=== PATIENT | female | born 1940 | race Caucasian/White ===

== ENCOUNTER 2019-09-20 03:22 | Observation (INO) | payer MEDICARE, OTHER ==
[~2019-09-20] VITALS: Ht 165.1 cm; Wt 96.5 kg
[~2019-09-20 03:22] MED LIST: ACET325; ACET500 PO; ALBU90I; ALBU90I INH; ALBU90OI INH; AMLO5 PO; ASPI325; ATOR40TA; ATOR40TA PO; AZIT250 PO; CALPHO600; CENTRUM SILVER1 EAC2 PO; CEPH500 PO; CITA20 PO; COLE1 PO; Calcium + Vita1 EACH PO; Cleocin HCl300 MG PO; DIOVAN HCT; DIPASPER; DIPASPER PO; ESCI10; ESCI20; ESCI20 PO; ESTEST.62T; FAMO10; FIORICET; GABA300; GABA300 PO; GABA600; GLYB5; GLYB5 PO; Garlic Oil1000 MG PO; HYDACE5; HYDACE5 PO; HYDCHL12.5; HYDCHL12.5 PO; HYDCHL25; HYDPAM100; HYDPAM25; HYDROXYZINE PAMOATE; LANS30EC PO; LEVSOD100; LEVSOD150 PO; LEVSOD200; LEVSOD50 PO; LISI20 PO; LITH300C; LORA10ER; LORA10ER PO; LOVA40 PO; MELA3 PO; METF500; METF500 PO; METO50; MIRALAX17 GM PO; MULT50L PO; MULVITA; MULVITMINF; NITR100CA PO; OMEPRAZOLE20 MG PO; Oxycodone HCl5 M1; PIOG15; PIOG30 PO; PRED20 PO; PRIM50; PRIM50 PO; PROACE100; Percocet 5-3251 EACH PO; QUIN325; SALINE NASAL M126 ML NS; Senna-Docusate1 EACH PO; Symbicort 16010.2 GM IH; TEMA15; TEMA30; TOCO1000; TOCO400; VALS80; Vitamin B-121000 MCG PO; ZYRTEC10 M1 PO
[2019-09-20 04:41] LABS: BASOPHILS ABSOLUTE AUTO 0.04 K/mm3 (0.00-0.23); BASOPHILS PERCENT AUTO 1 % (0-2); EOSINOPHILS ABSOLUTE AUTO 0.11 K/mm3 (0.00-0.68); EOSINOPHILS PERCENT AUTO 1 % (0-6); Hemoglobin 13.1 g/dL (11.5-16.0); IMMATURE GRAN ABSOLUTE AUTO 0.03 K/mm3 (0.00-0.10); IMMATURE GRAN PERCENT AUTO 0 % (0-1); LYMPHOCYTES PERCENT AUTO 16 % (21-46); MONOCYTES ABSOLUTE AUTO 0.74 K/mm3 (0.16-1.47); MONOCYTES PERCENT AUTO 8 % (4-13); Mean Corpuscular HGB 30.7 pg (26.0-34.0); Mean Corpuscular HGB Conc 33.6 g/dL (31.5-36.5); Mean Corpuscular Volume 91 fL (80-100); Mean Platelet Volume 9.7 fL (9.1-12.4); NEUTROPHILS ABSOLUTE AUTO 6.51 K/mm3 (1.96-9.15); NEUTROPHILS PERCENT AUTO 74 % (41-73); Platelet Count 225 K/mm3 (150-400); RDW Coefficient Variation 12.2 % (11.7-14.2); RDW Standard Deviation 40.1 fL (35.1-46.3); Red Blood Cell Count 4.27 M/mm3 (3.80-5.20); White Blood Cell Count 8.83 K/mm3 (4.00-11.30)
[2019-09-20 05:03] LABS: Alanine Aminotransfer (ALT/SGP 22 U/L (12-78); Albumin, Blood 3.6 g/dL (3.4-5.0); Albumin/Globulin Ratio 1.2 (0.8-1.8); Alk Phos 96 U/L (50-136); Anion Gap 7 mmol/L (6-16); Aspartate Aminotrans (AST/SGOT 17 U/L (12-37); Bilirubin, Total 0.4 mg/dL (0.1-1.0); Blood Urea Nitrogen 17 mg/dL (8-24); Bun/Creatinine Ratio 18.6 (12.0-20.0); CO2, Blood 24 mmol/L (21-32); Calcium, Blood 9.6 mg/dL (8.5-10.1); Chloride, Blood 111 mmol/L (98-108); Creatinine, Blood 0.92 mg/dL (0.40-1.00); Globulin, Blood 3.1 g/dL (2.2-4.0); Glomerular Filtration Rate >60 (60-); Glucose, Blood 62 mg/dL (70-99); Sodium, Blood 142 mmol/L (136-145); Total Protein, Blood 6.7 g/dL (6.4-8.2); Troponin I <0.015 ng/mL (0.000-0.040)
--- NOTE | 2019-09-20 07:17 | NUR ---
ER ADMIT-CHANGE OF SHIFT PT CHANGE OF SHIFT ADMIT AND ARRIVED TO THE UNIT SHORTLY BEFORE 0700. PT SETTLED INTO THE ROOM. SHE IS RESTING IN BED WITHOUT S/S OF DISTRESS. WILL REPORT TO FERNANDO HILL.
[2019-09-20] MEDS ORDERED: BILBERRY80 MG PO (09:27)
[2019-09-20] MEDS ORDERED: DULO30 PO (09:31)
[2019-09-20] MEDS ORDERED: ESCI20 PO (09:31)
[2019-09-20] MEDS ORDERED: GLIP10ER PO (09:36)
[2019-09-20] MEDS ORDERED: Glucophage1000 MG PO (09:38)
[2019-09-20] MEDS ORDERED: HYDR1TAB94 PO (09:40)
[2019-09-20 14:56] LABS: Source, Urine Clean Catch
[2019-09-20 15:05] LABS: Bilirubin, Urine Neg (Neg); Blood, Urine 3+ (Neg); Glucose Qualitative, Urine Neg (Neg); Ketones, Urine Neg (Neg); Leukocyte Esterase, Urine 3+ (Neg); Nitrite, Urine Neg (Neg); Protein, Urine 2+ (Neg); Urobilinogen, Urine NORM (Normal)
[2019-09-20 15:16] LABS: Appearance, Urine Cloudy (Clear); Color, Urine Yellow (P-Yellow)
[2019-09-20 15:18] LABS: White Blood Cells, Urine TNTC /hpf (0-5)
[2019-09-20 15:19] LABS: Bacteria Many /hpf
[2019-09-20 15:20] LABS: Squamous Epithelial Cells Few /hpf (Few)
--- NOTE | 2019-09-20 16:17 | NUR ---
PT PLEASANT TODAY. DENIES PAIN. PT/OT WORKED WITH HER TODAY. IS WOBLY BUT STRONG ENOUGH TO WALK WITH FWW. VERY MINIMAL LEFT WEAKNESS. GRAND STEFFANIEICE IN TO VISIT. 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 STATES SHE DOES BASICALLY EVERYTHING FOR HER. ORDER FOR S/S HAS BEEN PLACED RE HOME SITUATION. NO OTHER CONCERNS AT THIS TIME. BED IN LOW POSITION, CALL LITE IN REACH, CALLS APPROP
--- NOTE | 2019-09-21 03:37 | NUR ---
SHIFT SUMMARY AOX4. LS CLEAR, DENIES SOB. NO C/O NAUSEA. PAIN 5/10 IN LOWER BACK. TYLENOL GIVEN @ 2015 AND PERCOCET GIVEN @ 0245. 1 ASSIST WITH WALKER AND GAIT BELT TO THE BATHROOM. PT UP FREQUENTLY THROUGHOUT THE NIGHT. USUALLY HAD ABOUT 200 OUTPUT. VERY SLIGHT L SIDE FACIAL DROOP, HX OF CVA. PUPILS ARE NON-REACTIVE, RECEIVED THIS INFO IN REPORT AND STILL ACCURATE. BED ALARM, PT CALLED APPROPRIATELY. TELE READS SR IN THE 70'S WITH BBB. BIPAP AND CONT PULSE OX OVERNIGHT. R WRIST HAS NS @ 75, 1.5L THEN SL, 2ND BAG RUNNING NOW. BLOOD GLUCOSE AC AND HS - 186. CT (-). BRAIN STIMULATOR FOR TREMORS. NOTE SAYING S/S WERE D/T HYPOGLYCEMIA NOT CVA. VSS ON RA. UNSURE OF DC PLAN AT THIS TIME.
[2019-09-21 05:34] LABS: Hematocrit 39.7 % (33.0-51.0); Hemoglobin 12.8 g/dL (11.5-16.0); Mean Corpuscular HGB 30.3 pg (26.0-34.0); Mean Corpuscular HGB Conc 32.2 g/dL (31.5-36.5); Mean Platelet Volume 9.6 fL (9.1-12.4); Platelet Count 214 K/mm3 (150-400); RDW Coefficient Variation 12.2 % (11.7-14.2); RDW Standard Deviation 42.1 fL (35.1-46.3); Red Blood Cell Count 4.23 M/mm3 (3.80-5.20); White Blood Cell Count 8.06 K/mm3 (4.00-11.30)
[2019-09-21 05:43] LABS: Mean Corpuscular Volume 94 fL (80-100)
[2019-09-21 06:15] LABS: Alanine Aminotransfer (ALT/SGP 21 U/L (12-78); Albumin, Blood 3.6 g/dL (3.4-5.0); Albumin/Globulin Ratio 1.1 (0.8-1.8); Alk Phos 92 U/L (50-136); Anion Gap 8 mmol/L (6-16); Aspartate Aminotrans (AST/SGOT 18 U/L (12-37); Bilirubin, Total 0.6 mg/dL (0.1-1.0); Blood Urea Nitrogen 19 mg/dL (8-24); Bun/Creatinine Ratio 20.9 (12.0-20.0); CO2, Blood 23 mmol/L (21-32); Calcium, Blood 9.4 mg/dL (8.5-10.1); Chloride, Blood 110 mmol/L (98-108); Creatinine, Blood 0.91 mg/dL (0.40-1.00); Globulin, Blood 3.2 g/dL (2.2-4.0); Glomerular Filtration Rate >60 (60-); Glucose, Blood 133 mg/dL (70-99); Potassium, Blood 4.5 mmol/L (3.5-5.5); Sodium, Blood 141 mmol/L (136-145); Total Protein, Blood 6.8 g/dL (6.4-8.2)
--- NOTE | 2019-09-21 19:29 | NUR ---
SHIFT SUMMARY. A&OX4, PLEASANT AND COOPERATIVE, AWARE OF LIMITATIONS AND CALLS APPRPRIATELY. ONE ASSIST WITH FWW AND GB. PT DENIES PAIN, SOB, N/V. NEURO CHECKS NEGATIVE. NO NEW CHANGES OR CONCERNS.
[2019-09-22 01:15] LABS: Adenovirus Not Detected (NOT DETECT); Bordetella pertussis Not Detected (NOT DETECT); Chlamydophila pneumoniae Not Detected (NOT DETECT); Coronavirus 229E Not Detected (NOT DETECT); Coronavirus HKU1 Not Detected (NOT DETECT); Coronavirus NL63 Not Detected (NOT DETECT); Coronavirus OC43 Not Detected (NOT DETECT); Human Metapneumovirus Not Detected (NOT DETECT); Human Rhinovirus/Enterovirus Not Detected (NOT DETECT); Influenza A Not Detected (NOT DETECT); Influenza A/2009-H1 Not Detected (NOT DETECT); Influenza A/H1 Not Detected (NOT DETECT); Influenza A/H3 Not Detected (NOT DETECT); Influenza B Not Detected (NOT DETECT); Mycoplasma pneumoniae Not Detected (NOT DETECT); Parainfluenza Virus 1 Not Detected (NOT DETECT); Parainfluenza Virus 2 Not Detected (NOT DETECT); Parainfluenza Virus 3 Not Detected (NOT DETECT); Parainfluenza Virus 4 Not Detected (NOT DETECT); Respiratory Syncytial Virus Not Detected (NOT DETECT)
--- NOTE | 2019-09-22 03:35 | NUR ---
DEPUTY GRAND JURY SUMMARY PT A/O X4 AT BEGINNING OF SHIFT. HOWEVER, WHEN PT WAKES UP IN THE MIDDLE OF NIGHT TO USE BATHROOM, PT THINKS SHE IS AT HOME BUT QUICKLY REMEMBERS SHE IS IN THE HOSPITAL. DENIES PAIN, DIZZINIESS, NAUSEA. USES CALL REESE APPROPRIATELY AND IS COOPERATIVE. NASAL SWAB WAS DONE AND SENT TO LAB. CPAP AND CONTINOUS PULSE OX ON WITH SATS IN HIGH 90'S. VSS, WILL CONTINUE TO MONITOR.
--- NOTE | 2019-09-22 18:12 | NUR ---
SHIFT SUMMARY NO ACUTE CHANGES. PATIENT DENIES PAIN, NAUSEA, ANS SHORTNESS OF BREATH. PATIENT UP ONE ASSIST W/ GAITBELT AND FWW. PATIENT UP IN CHAIR FOR MEALS. PATIENT CONTINUES TO HAVE MILD TREMORS. PATIENT STATES SHE NEEDS MORE ASSISTANCE AT HOME THAN HER NIECE IS PROVIDING. PATIENT STATES SHE IS SCHEDULED TO HAVE AN OUTPATIENT MYELOGRAM ON 09/24 BUT HER NIECE HAS NOT TAKEN HER TO GET REQUIRED BLOODWORK TO FILL OUT PAPERWORK. PATIENT HAS REQUESTED ASSISTANCE WITH THIS WELL. CALL LIGHT IN REACH.
--- NOTE | 2019-09-23 04:46 | NUR ---
LIFE UNDERWRITER SUMMARY NO ACUTE CHANGES THIS SHIFT. PT AAOX4 AND PLEASANT. 1 ASSIST WITH FWW, CALLS APPROPRIATELY FOR ASSISTANCE WITH CALL LIGHT. HAS GOTTEN UP TO BATHROOM TO VOID MULTIPLE TIMES TONIGHT. DENIES PAIN, N/V. USING BIPAP WITH SLEEP. VSS, WILL CONTINUE TO MONITOR.
--- NOTE | 2019-09-23 15:50 | NUR ---
Spiritual Care inital note: Mrs. Angelo admits to feeling worried and was appreciaitve of prayer/spiritual encouragement. Her great-niece lives with her and is supposed to be providing care. Niece's BF has also moved in and Katie feels they are taking advantage of her. She has placed a t/c to APS for help. She was hopeful APS could see her while hospitalized as she is fearful of saying anything in front of niece. It is unclear to me that discharge planning has been involved. Mrs. Angelo was talkative and responded well to theraputic listening and gentle job counselor. She has not been to catholic since the local cpo's . She did not want verbal prayer, but instead asked that we pray together silently. I will remain available.
--- NOTE | 2019-09-23 16:16 | NUR ---
SHIFT SUMMARY THE PATIENT HAS HAD AN UNEVENTFUL DAY. VITALS REMAIN STABLE. PATIENT CALLS FOR STAFF ASSIST APPROPRIATELY. NO ACUTE CHANGES TO REPORT OF AT THIS TIME. WILL CONTINUE TO MONITOR AND PROVIDE CARE NEEDED.
[2019-09-23] MEDS ORDERED: LISI20 PO (23:31)
[2019-09-23] MEDS ORDERED: ATOR80 PO (23:32)
[2019-09-23] MEDS ORDERED: ASPI325 PO (23:33)
[2019-09-23] MEDS ORDERED: CLOP75 PO (23:34)
[2019-09-23] MEDS ORDERED: DOXY100 PO (23:35)
--- NOTE | 2019-09-24 04:02 | NUR ---
SHIFT SUMMARY INFORMED THAT PT TO DC TOMORROW MORNING IN ORDER TO PARTICIPATE IN A MYELOGRAM STUDY OUTPT @ 0830 AM. CALLED IMAGING AND THEY STATED PT SHOULD BE NPO FOR 4 HOURS BEFORE PROCEDURE. I DID COMPLETE THE DISCHARGE MED REC MYSELF AND FAX HER PREFERED PHARMACY RE:DISCHARGE MEDICATIONS. ALL OTHER PARTS OF THE DISCHARGE COMPLETED BY PREVIOUS DAY SHIFT NURSE. I DID SEE THAT CARE MANAGEMENT HAS MADE NOTES RE: HOME HEALTH VISITS. I WILL DC THE PT'S IV IN THE AM AND MAKE SURE SHE IS DRESSED AND POSSESSIONS ARE GATHERED TO FACILITATE THE EARLY DC. PT USING HER PERSONAL BIPAP PRN, CONTINUOUS PULSE OX IS IN PLACE, TELE SHOWS NSR @ 71 BPM.
--- NOTE | 2019-09-24 06:52 | NUR ---
PRE-DISCHARGE NOTE TO FACILITATE DISCHARGE I HAVE COMPLETED THE DISCHARGE MED REC, FAXED DISCHARGE MEDS TO PT'S PREFERED PHARMACY, [facility]. OUTPT PROCEDURE CHECK IN IS 0830 HOURS. PT IS NOW DRESSED IN PERSONAL CLOTHING, PERSONAL POSSESSIONS GATHERED. PT GIVEN HARDCOPY AND VERBAL INSTRUCTIONS FOR DISCHARGE RE: DIAGNOSES, MEDICATIONS, FOLLOW UP APPOINTMENTS. PT HAD NO FURTHER QUESTIONS. PT NOTIFIED HER FAMILY.
--- NOTE | 2019-09-24 08:49 | NUR ---
PATIENT DISCHARGED TO IMAGING SERVICES AT 0815 THIS AM. ABLE TO MAKE HER NEEDS KNOWN. THIS RN WHEELED THE PATIENT TO IMAGINING. STAYED WITH PATIENT UNTIL TECH IN IMAGING VERBALIZED THAT I COULD LEAVE AND SHE WOULD TAKE CARE OF MS. NIXON FROM HERE.
== END 2019-09-24 08:17 | disposition home health service (06) ==
LOC: ER 03:22 → MEDS 03:23 → UNDODEPER 06:40 → MEDS 09-24 08:17
PROVIDERS: Emergency Medicine; ADMIT Internal Medicine
DX: R53.1 Weakness (principal); R29.810 Facial weakness; E11.649 Type 2 diabetes mellitus with hypoglycemia without coma; N39.0 Urinary tract infection, site not specified; B96.89 Other specified bacterial agents as the cause of diseases classified elsewhere; Z16.29 Resistance to other single specified antibiotic; R25.1 Tremor, unspecified; I10 Essential (primary) hypertension; F31.9 Bipolar disorder, unspecified; Z79.82 Long term (current) use of aspirin; Z79.899 Other long term (current) drug therapy; Z79.84 Long term (current) use of oral hypoglycemic drugs; Z96.82 Presence of neurostimulator; E66.3 Overweight; Z66 Do not resuscitate; Z88.1 Allergy status to other antibiotic agents; Z88.0 Allergy status to penicillin; Z88.2 Allergy status to sulfonamides; Z86.73 Personal history of transient ischemic attack (TIA), and cerebral infarction without residual deficits; Z88.8 Allergy status to other drugs, medicaments and biological substances; Z86.19 Personal history of other infectious and parasitic diseases; Z68.34 Body mass index [BMI] 34.0-34.9, adult; Z23 Encounter for immunization
CPT/HCPCS: 0099U; 36415; 70450; 71045; 71046; 80053; 81001; 82947; 83880; 84484; 85025; 85027; 87077; 87086; 87186; 90686; 93005; 93010; 93306; 93880; 94640; 94660; 94762; 96374; 97110; 97116; 97162; 97165; 97530; 97535; 99285-25; G0008; G0378; J1650; J7030

== ENCOUNTER 2019-11-18 08:32 | Day surgery (SDC) | payer MEDICARE, OTHER ==
[~2019-11-18 08:32] MED LIST changes: +ASPI325 PO; +ATOR80 PO; +BILBERRY80 MG PO; +CLOP75 PO; +DOXY100 PO; +DULO30 PO; +GLIP10ER PO; +Glucophage1000 MG PO; +HYDR1TAB94 PO
--- NOTE | 2019-11-18 10:29 | NUR ---
PT BROUGHT FROM [facility]IA [facility]. PT AWAKE, ALERT AND ORIENTED. PT DENIES ANY NEW PAIN FROM PROCEDURE. PT HAS EQUAL ELEVATOR STARTER BILATERALLY, RIGHT LEG SEEMS SLIGHTLY EAKER THAN LEFT WITH PUSH, PULLS EQUALLY STRON. BANDAID SITE CDI WITH NO HEMATOMA. PT EDUCATED TO REPORT ANY SIGNS DIFFERENT FROM NORMAL FUNCTION. CALL LIGHT PROVIDED. WILL CONTINUE TO MONITOR AND BRING PT COFFEE PER REQUEST.
--- NOTE | 2019-11-18 11:17 | NUR ---
PT C/O OF SOME CHANGES IN THE WAY HEAD FEELS. SHE STATED "IT FEELS LIKE MY HEAD IS FEELING FULL DOWN TO MY MOUTH. PT IS DIABETIC, STATES HER CBG WAS 95 THIS AM. RECEIVED ORDER FOR CBG CHECK SINCE PT HAS BEEN NPO. CBG IS 95 AT 1117 PROVIDED APPLE SAUCE, COFFE WITH MILK.
--- NOTE | 2019-11-18 11:55 | NUR ---
HIEU ZHANG ORDERED CBG BUT WAS NOT CONCERNED ABOUT PT REPORTS OF FULL HEAD. PT TOLD ME AFTER SHE REPORTED THE CONCERN THAT HER REPORT OF FEELING LIKE HEAD WAS FILLING IS SOMETHING SHE OBSERVED WHEN HER BLOOD SUGAR BECOMES LOW. FRIEND AT BEDSIDE, PT CHRISTIAN. NO CHANGES TO LUMBAR SITE. NO CHANGES IN NUERO CHECKS.
--- NOTE | 2019-11-18 14:03 | NUR ---
PT REMAINED WITH NUERO CHECKS WNL, Dressing to procedure site clean, dry, intact with no visible drainage, swelling, erythema or bruising noted. PT PROVIDED FOOD AND FLUIDS T/O RECOVERY, TOLERATED WELL. CALLED DR MORALEZ AT [facility] TO HAVE SCHEDULED LABS PT WAS GOING TO HAVE DRAWN IN [facility] OP LAB DONE HERE.PT DONE WITH RECOVERY FROM MYELOGRAM AT 1210. PT KEPT IN STEP TILL RECEIVED FAX FROM [facility] AND HAD LABS DRAWN. Discharge instructions reviewed with patient. Patient verbalizes understanding. Copy given to patient to take home. FRIEND PROVIDED TRANSPORTATION HOME.
[2019-11-18 14:12] LABS: BASOPHILS ABSOLUTE AUTO 0.03 K/mm3 (0.00-0.23); BASOPHILS PERCENT AUTO 1 % (0-2); EOSINOPHILS ABSOLUTE AUTO 0.12 K/mm3 (0.00-0.68); EOSINOPHILS PERCENT AUTO 2 % (0-6); Hematocrit 42.9 % (33.0-51.0); Hemoglobin 14.1 g/dL (11.5-16.0); IMMATURE GRAN ABSOLUTE AUTO 0.02 K/mm3 (0.00-0.10); IMMATURE GRAN PERCENT AUTO 0 % (0-1); LYMPHOCYTES ABSOLUTE AUTO 1.88 K/mm3 (0.84-5.20); LYMPHOCYTES PERCENT AUTO 28 % (21-46); MONOCYTES ABSOLUTE AUTO 0.52 K/mm3 (0.16-1.47); MONOCYTES PERCENT AUTO 8 % (4-13); Mean Corpuscular HGB 30.2 pg (26.0-34.0); Mean Corpuscular HGB Conc 32.9 g/dL (31.5-36.5); Mean Corpuscular Volume 92 fL (80-100); Mean Platelet Volume 9.7 fL (9.1-12.4); NEUTROPHILS ABSOLUTE AUTO 4.09 K/mm3 (1.96-9.15); NEUTROPHILS PERCENT AUTO 61 % (41-73); Platelet Count 247 K/mm3 (150-400); RDW Coefficient Variation 12.2 % (11.7-14.2); RDW Standard Deviation 40.9 fL (35.1-46.3); Red Blood Cell Count 4.67 M/mm3 (3.80-5.20); White Blood Cell Count 6.66 K/mm3 (4.00-11.30)
== END 2019-11-18 23:08 | disposition home or self-care (01) ==
LOC: RAD 08:32 → CT 10:00 → RAD 11:00
PROVIDERS: Family Medicine
DX: M51.36 Other intervertebral disc degeneration, lumbar region (principal); M48.061 Spinal stenosis, lumbar region without neurogenic claudication; E11.51 Type 2 diabetes mellitus with diabetic peripheral angiopathy without gangrene; E11.40 Type 2 diabetes mellitus with diabetic neuropathy, unspecified; F32.9 Major depressive disorder, single episode, unspecified; I10 Essential (primary) hypertension; I69.392 Facial weakness following cerebral infarction; E03.9 Hypothyroidism, unspecified; I69.354 Hemiplegia and hemiparesis following cerebral infarction affecting left non-dominant side; Z79.82 Long term (current) use of aspirin; Z79.899 Other long term (current) drug therapy; Z88.0 Allergy status to penicillin; Z88.2 Allergy status to sulfonamides; Z88.8 Allergy status to other drugs, medicaments and biological substances; Z88.1 Allergy status to other antibiotic agents; Z79.84 Long term (current) use of oral hypoglycemic drugs; Z79.02 Long term (current) use of antithrombotics/antiplatelets
CPT/HCPCS: 62304; 72132; 82947; 85025; 85730; Q9966

== ENCOUNTER 2020-01-01 22:03 | Inpatient (IN) | payer MEDICARE, OTHER ==
[~2020-01-01] VITALS: Ht 165.1 cm; Wt 92.9 kg
[2020-01-01 22:37] LABS: BASOPHILS ABSOLUTE AUTO 0.05 K/mm3 (0.00-0.23); BASOPHILS PERCENT AUTO 1 % (0-2); EOSINOPHILS ABSOLUTE AUTO 0.15 K/mm3 (0.00-0.68); EOSINOPHILS PERCENT AUTO 2 % (0-6); Hematocrit 41.8 % (33.0-51.0); Hemoglobin 13.7 g/dL (11.5-16.0); IMMATURE GRAN ABSOLUTE AUTO 0.01 K/mm3 (0.00-0.10); IMMATURE GRAN PERCENT AUTO 0 % (0-1); LYMPHOCYTES PERCENT AUTO 25 % (21-46); MONOCYTES ABSOLUTE AUTO 0.54 K/mm3 (0.16-1.47); MONOCYTES PERCENT AUTO 8 % (4-13); Mean Corpuscular HGB Conc 32.8 g/dL (31.5-36.5); Mean Corpuscular Volume 92 fL (80-100); Mean Platelet Volume 9.9 fL (9.1-12.4); NEUTROPHILS ABSOLUTE AUTO 4.12 K/mm3 (1.96-9.15); NEUTROPHILS PERCENT AUTO 64 % (41-73); Platelet Count 238 K/mm3 (150-400); RDW Coefficient Variation 12.2 % (11.7-14.2); RDW Standard Deviation 40.8 fL (35.1-46.3); Red Blood Cell Count 4.56 M/mm3 (3.80-5.20); White Blood Cell Count 6.47 K/mm3 (4.00-11.30)
[2020-01-01 22:53] LABS: International Normalized Ratio 0.99; Prothrombin Time Results 10.6 Sec (9.7-11.5)
[2020-01-01 22:54] LABS: Albumin, Blood 3.7 g/dL (3.4-5.0); Albumin/Globulin Ratio 1.2 (0.8-1.8); Bilirubin, Total 0.3 mg/dL (0.1-1.0); Bun/Creatinine Ratio 26.9 (12.0-20.0); Calcium, Blood 9.9 mg/dL (8.5-10.1); Creatinine, Blood 1.04 mg/dL (0.40-1.00); Globulin, Blood 3.2 g/dL (2.2-4.0); Potassium, Blood 4.6 mmol/L (3.5-5.5); Total Protein, Blood 6.9 g/dL (6.4-8.2)
[2020-01-02 00:35] LABS: Cholesterol 184 mg/dL (50-200); HDL Cholesterol 37 mg/dL (>39); LDL/HDL RATIO 3.2; Low Density Lipoprotein Chol 117 mg/dL (0-110); Triglycerides 150 mg/dL (30-160); Very Low Density Lipoprot Chol 30 mg/dL (6-32)
[2020-01-02 00:37] LABS: Thyroid Stimulating Hormone 0.733 uIU/mL (0.360-4.800)
[2020-01-02] MEDS ORDERED: BILBERRY PO (02:32)
[2020-01-02] MEDS ORDERED: VITAMIN D31000 UNI1 PO (02:46)
[2020-01-02] MEDS ORDERED: MILK OF MA400 MG/5 M PO (02:55)
--- NOTE | 2020-01-02 07:47 | NUR ---
SHIFT SUMMARY ADMITTED THIS NIGHT FOR NEURO SYMPTOMS. PT COMES TO FLOOR AAOX4 WITH RESP E/U ON ROOM AIR. HER R ARM AND LEG ARE WEAKER THAN THE LEFT. FACE APPEARS SYMMETRICAL THOUGH PT STATES THIS IS DUE TO BILAT DROOP. DENIES ANY NEW NUMBNESS OR TINGLING. MISSING L GREAT TOE AND HAS SORE ON L SECOND TOE. PICTURE IN CHART. NO ACUTE CHANGES NOTED THIS NIGHT. REPORT TO ONCOMING RN.
--- NOTE | 2020-01-02 18:47 | NUR ---
PT. LYING QUIETLY. DENIES PAIN OR SOB. PT.WORKED WITH PT/0T/ AND [facility] [email or web address] . NO NOTEABLE CHANGES THIS SHIFT.
--- NOTE | 2020-01-03 05:52 | NUR ---
SHIFT SUMMARY PT IS PLEASANT AND COOPERATIVE WITH CARE. AAOX4. RESP E/U ON ROOM AIR. VSS. SHE HAS SLEPT MUCH OF THE NIGHT. CONTINUES TO BE INCONTINENT. CONTINUED WEAKNESS IN RU AND RL EXTREMETIES. NO ACUTE CHANGES NOTED THIS NIGHT. WILL CONTINUE TO MONITOR.
--- NOTE | 2020-01-03 09:20 | NUR ---
PT PLEASANT COOP A/O. DENIES PAIN. RT WEAK, PRIOR CVA LEFT L WEAK. BILAT FACIAL DROOP. ESSENTIAL TREMOR. H/R REG, NO MURMER NOTED. PER TELE. NSR AT 83. LUNGS CLEAR, RESP EASY, UNLABORED. ON.R.A. BT X4 LAST BM 2 DAYS PER PT. VOIDS PER ATTENDS. STATES SOME INCONT. IS 2 PERSON STAND PIVOT TO BSC. BED IN LOW POSITION , CALL LITE IN REACH, CALLS APPROP
--- NOTE | 2020-01-03 12:33 | NUR ---
REPORT CALLED TO NAVA HARTMAN RN. PT DISCHARGE EXPECTED ABOUT 1330
[2020-01-03] MEDS ORDERED: ATORVASTATIN CA80 M1 PO (12:57)
[2020-01-03] MEDS ORDERED: CLOP75 PO (12:58)
--- NOTE | 2020-01-03 15:38 | NUR ---
IV PULLED INTACT. TELE REMOVED. D/C REVIEWED WITH PT. GOING TO [facility]. CALLED REPORT TO H[facility]BERTOCLOT[facility]ER. WHEELED PT TO DOOR AT 1439
== END 2020-01-03 15:19 | DRG 65 ==
LOC: ER 22:03 → MEDS 22:04
PROVIDERS: Emergency Medicine; ADMIT Family Medicine
DX: I63.522 Cerebral infarction due to unspecified occlusion or stenosis of left anterior cerebral artery (principal); G81.91 Hemiplegia, unspecified affecting right dominant side; E03.9 Hypothyroidism, unspecified; E11.59 Type 2 diabetes mellitus with other circulatory complications; F31.9 Bipolar disorder, unspecified; J45.909 Unspecified asthma, uncomplicated; R29.810 Facial weakness; I10 Essential (primary) hypertension; Z86.73 Personal history of transient ischemic attack (TIA), and cerebral infarction without residual deficits; Z96.89 Presence of other specified functional implants; R25.1 Tremor, unspecified; Z66 Do not resuscitate
CPT/HCPCS: 70450; 70496; 80053; 80061; 82947; 84443; 85025; 85610; 85730; 92526; 92610; 93005; 93010; 96372; 97110; 97112; 97162; 97166; 97535; 99285-25; A9270; A9270-GY; G0378; J1650; Q9967